=== PATIENT | male | born 1970 | race Caucasian/White ===

== ENCOUNTER → 2018-02-21 | Emergency (ER) | payer OTHER ==
[~2018-02-21] MED LIST: ENOXAPARIN SODIUM SQ ONE; LIPITOR 40MG ONE; LIPITOR 40MG PO STA; NITRO-BID 2% UD PACKETS ONE; NITRO-BID 2% UD PACKETS TOP ONE; Nitrostat 0.4 MG (ED) SL ONE; PLAVIX 75 MG Tablet ONE; PLAVIX 75 MG Tablet PO ONE; Sodium Chloride 0.9% 1000 ML 1,000 ML IV SCH
--- NOTE | 2018-02-21 00:59 | ERPHSYRPT ---
- History of Present Illness Time Seen by Provider: 02/21/18 00:51 Historian: patient Exam Limitations: clinical condition Physician History: PATIENT WITH A HISTORY OF HYPERTENSION COMPLAINS OF LEFT SUBSTERNAL CHEST PAINS WITH ONSET AT 11PM TONIGHT RADIATES TO LEFT SIDE OF NECK. WORKS AT [email or web address], ONSET OF PAIN WHILE AMBULATORY, PAIN SCALE 10/10, TOOK 2 ADULT ASPIRIN, HAS ASSOCIATED DIAPHORESIS AND DYSPNEA. PAIN IMPROVE TO PAIN SCALE 5/10. Timing/Duration: today Activities at Onset: activity Quality: pressure Location: substernal Chest Pain Radiation: jaw Severity of Pain-Max: severe Severity of Pain-Current: moderate Modifying Factors: Improves With: exertion Associated Symptoms: diaphoresis, other (DYSPNEA) Prior Chest Pain/Cardiac Workup: no prior chest pain Nitro Today/Relief: 0.4 mg x 2, provided by ED Aspirin Treatment Today: provided at home (ASPIRIN 650MG ORALLY) Allergies/Adverse Reactions: Penicillins Allergy (Intermediate, Verified 02/21/18 00:58) morphine Adverse Reaction (Intermediate, Verified 02/21/18 00:58) Vomiting Home Medications: Losartan Potassium 25 mg PO DAILY 02/21/18 [History] - Review of Systems Constitutional: No Fever, No Chills Eyes: No Symptoms Ears, Nose, & Throat: No Symptoms Respiratory: No Cough, No Dyspnea Cardiac: Chest Pain, Other (DIAPHORESIS), No Edema, No Syncope Abdominal/Gastrointestinal: No Abdominal Pain, No Nausea, No Vomiting, No Diarrhea Genitourinary Symptoms: No Symptoms, No Dysuria Musculoskeletal: No Symptoms, No Back Pain, No Neck Pain Skin: No Symptoms, No Rash Neurological: No Dizziness, No Focal Weakness, No Sensory Changes Psychological: No Symptoms Endocrine: No Symptoms All Other Systems: Reviewed and Negative - Nursing Vital Signs Nursing Vital Signs: Initial Vital Signs Temperature 97.8 F 02/21/18 00:46 Pulse Rate 89 02/21/18 00:46 Respiratory Rate 18 02/21/18 00:46 Blood Pressure 168/121 02/21/18 00:46 O2 Sat by Pulse Oximetry 97 02/21/18 00:46 Pain Scale Pain Intensity 1 - Physical Exam General Appearance: mild distress Eye Exam: PERRL/EOMI, eyes nml inspection Ears, Nose, Throat Exam: normal ENT inspection, moist mucous membranes Neck Exam: normal inspection, non-tender, supple, full range of motion Respiratory Exam: normal breath sounds, lungs clear, No respiratory distress Cardiovascular Exam: regular rate/rhythm, normal heart sounds Gastrointestinal/Abdomen Exam: soft, normal bowel sounds, No tenderness, No mass Back Exam: normal inspection, No CVA tenderness, No vertebral tenderness Extremity Exam: normal inspection, normal range of motion Neurologic Exam: alert, oriented x 3, cooperative, normal mood/affect, sensation nml, No motor deficits Skin Exam: normal color, warm, dry Lymphatic Exam: adenopathy SpO2 Interpretation: normal SpO2: 97 - Course EKG Interpreted by Me: RATE, Sinus Rhythm, NORMAL AXIS, Non-specific ST Changes (DIFFUSE INFERIOR LATERAL DEPRESSION RATE 87) - Radiology Exams Chest X-ray Interpretation: Interpreted by me, Negative, No Infiltrates Ordered Tests: Active Orders 24 hr Category Date Time Status Talent Program Manager STAT Care 02/21/18 00:53 Active EKG-ER Only STAT Care 02/21/18 00:52 Active Oxygen-ED Only NASAL CANNULA 2 lpm Care 02/21/18 00:52 Active CHEST 1 VIEW (PORTABLE) Stat Exams 02/21/18 00:53 Taken CBC W DIFF Stat Lab 02/21/18 01:08 Completed CMP Stat Lab 02/21/18 01:08 Completed D-DIMER QUANTITATION Stat Lab 02/21/18 01:08 Completed PROTIME WITH INR Stat Lab 02/21/18 01:08 Completed TROPONIN Q3H Lab 02/21/18 01:08 Completed TROPONIN Q3H Lab 02/21/18 04:00 Ordered TROPONIN Q3H Lab 02/21/18 07:00 Ordered TROPONIN Q3H Lab 02/21/18 10:00 Ordered TROPONIN Q3H Lab 02/21/18 13:00 Ordered Medication Summary Generic Name Dose Route Start Last Admin Trade Name Freq PRN Reason Stop Dose Admin Sodium Chloride 1,000 mls @ 100 mls/hr 02/21/18 01:00 02/21/18 01:04 Sodium Chloride 0.9% 1000 Ml IV 03/23/18 00:59 100 mls/hr .Q10H TERENCE Administration Discontinued Medications Generic Name Dose Route Start Last Admin Trade Name Freq PRN Reason Stop Dose Admin Atorvastatin Calcium 80 mg 02/21/18 02:05 02/21/18 02:11 Lipitor 40mg PO 02/21/18 02:06 80 mg STAT STA Administration Atorvastatin Calcium Confirm 02/21/18 02:08 Lipitor 40mg Administered 02/21/18 02:09 Dose 80 mg .ROUTE .STK-MED ONE Clopidogrel Bisulfate 150 mg 02/21/18 02:05 02/21/18 02:15 Plavix 75 Mg Tablet PO 02/21/18 02:06 150 mg STAT ONE Administration Clopidogrel Bisulfate Confirm 02/21/18 02:16 Plavix 75 Mg Tablet Administered 02/21/18 02:17 Dose 150 mg .ROUTE .STK-MED ONE Enoxaparin Sodium 110 mg 02/21/18 02:05 02/21/18 02:11 Enoxaparin Sodium 1 mg/kg (110 mg) 02/21/18 02:06 110 mg SQ Administration STAT ONE Enoxaparin Sodium Confirm 02/21/18 02:07 Enoxaparin Sodium Administered 02/21/18 02:08 Dose 120 mg SQ .STK-MED ONE Nitroglycerin 0.4 mg 02/21/18 00:52 02/21/18 01:04 Nitrostat 0.4 Mg (Ed) SL 02/21/18 00:53 0.4 mg STAT ONE Administration Nitroglycerin Confirm 02/21/18 01:02 Nitrostat 0.4 Mg (Ed) Administered 02/21/18 01:03 Dose 0.4 mg SL .STK-MED ONE Nitroglycerin Confirm 02/21/18 02:09 Nitro-Bid 2% Ud Packets Administered 02/21/18 02:10 Dose 1 gm .ROUTE .STK-MED ONE Nitroglycerin 1 gm 02/21/18 02:13 02/21/18 02:15 Nitro-Bid 2% Ud Packets TOP 02/21/18 02:14 1 gm STAT ONE Administration Lab/Rad Data: Laboratory Result Diagrams 02/21/18 01:08 02/21/18 01:08 Laboratory Results 02/21/18 02/21/18 02/21/18 Range/Units 01:08 01:08 01:08 WBC (4.0-10.5) K/mm3 RBC (4.1-5.6) M/mm3 Hgb (12.5-18.0) gm/dl Hct (42-50) % MCV (78-100) fl MCH (26-32) pg MCHC (32-36) g/dl RDW (11.5-14.0) % Plt Count (150-450) K/mm3 MPV (6-9.5) fl Gran % (36.0-66.0) % Eos # (Auto) (0-0.5) Absolute Lymphs (auto) (1.0-4.6) Absolute Monos (auto) (0.0-1.3) Lymphocytes % (24.0-44.0) % Monocytes % (0.0-12.0) % Eosinophils % (0.00-5.0) % Basophils % (0.0-0.4) % Absolute Granulocytes (1.4-6.9) Basophils # (0-0.4) PT 11.4 (8.83-12.87) SECONDS INR 0.98 (0.8-3.0) D-Dimer 412.44 (215-500) ng/mL Sodium 142 (137-145) mmol/L Potassium 3.7 (3.5-5.1) mmol/L Chloride 103 (98-107) mmol/L Carbon Dioxide 27 (22-30) mmol/L Anion Gap 14.7 (5-15) MEQ/L BUN 19 (9-20) mg/dL Creatinine 1.25 (0.66-1.25) mg/dL Estimated GFR > 60.0 ML/MIN Glucose 116 H (74-106) mg/dL Calcium 9.2 (8.4-10.2) mg/dL Total Bilirubin 0.40 (0.2-1.3) mg/dL AST 26 (17-59) U/L ALT 30 (0-50) U/L Alkaline Phosphatase 85 (38-126) U/L Troponin I 0.040 H* (0.000-0.034) ng/mL Serum Total Protein 7.5 (6.3-8.2) g/dL Albumin 4.3 (3.5-5.0) g/dL 02/21/18 Range/Units 01:08 WBC 8.8 (4.0-10.5) K/mm3 RBC 5.31 (4.1-5.6) M/mm3 Hgb 17.0 (12.5-18.0) gm/dl Hct 49.6 (42-50) % MCV 93.4 (78-100) fl MCH 32.0 (26-32) pg MCHC 34.3 (32-36) g/dl RDW 12.9 (11.5-14.0) % Plt Count 315 (150-450) K/mm3 MPV 10.6 H (6-9.5) fl Gran % 52.8 (36.0-66.0) % Eos # (Auto) 0.32 (0-0.5) Absolute Lymphs (auto) 2.46 (1.0-4.6) Absolute Monos (auto) 1.27 (0.0-1.3) Lymphocytes % 28.1 (24.0-44.0) % Monocytes % 14.5 H (0.0-12.0) % Eosinophils % 3.7 (0.00-5.0) % Basophils % 0.9 (0.0-0.4) % Absolute Granulocytes 4.62 (1.4-6.9) Basophils # 0.08 (0-0.4) PT (8.83-12.87) SECONDS INR (0.8-3.0) D-Dimer (215-500) ng/mL Sodium (137-145) mmol/L Potassium (3.5-5.1) mmol/L Chloride (98-107) mmol/L Carbon Dioxide (22-30) mmol/L Anion Gap (5-15) MEQ/L BUN (9-20) mg/dL Creatinine (0.66-1.25) mg/dL Estimated GFR ML/MIN Glucose (74-106) mg/dL Calcium (8.4-10.2) mg/dL Total Bilirubin (0.2-1.3) mg/dL AST (17-59) U/L ALT (0-50) U/L Alkaline Phosphatase (38-126) U/L Troponin I (0.000-0.034) ng/mL Serum Total Protein (6.3-8.2) g/dL Albumin (3.5-5.0) g/dL - Progress Progress: improved Progress Note: 02/21/18 01:01 IV NORMAL SALINE 100ML/HR, NITRO 0.4MG SL, COMPLETE RELIEF, APPLICATION NITROPASTE 1' ANTERIOR CHEST WALL, LIPITOR 80MG, PLAVIX 150MG ORALLY AND LOVENOX 100MG SUBQ, TROPONIN 0.04 02/21/18 02:19 Discussed with : Other (DISCUSSED WITH [facility] STONE AT 0215 ACCEPTS VIA [facility]) - Departure Time of Disposition: 02:30 Departure Disposition: Transfer Clinical Impression: Non Q wave myocardial infarction Condition: Stable Critical Care Time: No Referrals: DOCTOR,NO FAMILY [Primary Care Provider] -
[2018-02-21 01:14] LABS: BASOPHIL % 0.9 % (0.0-0.4); Basophil (Absolute #) 0.08 (0-0.4); Eosinophil % 3.7 % (0.00-5.0); Eosinophil (Absolute #) 0.32 (0-0.5); Granulocyte Absolute (ANC) 4.62 (1.4-6.9); Granulocytes % 52.8 % (36.0-66.0); Hematocrit 49.6 % (42-50); Lymphocyte (Absolute #) 2.46 (1.0-4.6); Lymphocytes % 28.1 % (24.0-44.0); Mean Cell Volume 93.4 fl (78-100); Mean Corpuscular Hgb Concent. 34.3 g/dl (32-36); Mean Platelet Volume 10.6 fl (6-9.5); Monocyte (Absolute #) 1.27 (0.0-1.3); Monocytes % 14.5 % (0.0-12.0); Platelet Count 315 K/mm3 (150-450); Red Blood Count 5.31 M/mm3 (4.1-5.6); Red Cell Distribution Width 12.9 % (11.5-14.0); White Blood Count 8.8 K/mm3 (4.0-10.5)
[2018-02-21 01:29] LABS: INR 0.98 (0.8-3.0)
[2018-02-21 01:31] LABS: D-DIMER QUANTITATION 412.44 ng/mL (215-500)
[2018-02-21 01:34] LABS: ALBUMIN 4.3 g/dL (3.5-5.0); ALKALINE PHOSPHATASE 85 U/L (38-126); ANION GAP 14.7 MEQ/L (5-15); BLOOD UREA NITROGEN 19 mg/dL (9-20); CHLORIDE 103 mmol/L (98-107); Calcium 9.2 mg/dL (8.4-10.2); Carbon Dioxide 27 mmol/L (22-30); Creatinine 1 1.25 mg/dL (0.66-1.25); Glucose 116 mg/dL (74-106); Potassium 3.7 mmol/L (3.5-5.1); SGOT/AST 26 U/L (17-59); SGPT/ALT 30 U/L (0-50); SODIUM 142 mmol/L (137-145); Total Protein 7.5 g/dL (6.3-8.2)
[2018-02-21 01:38] VITALS: O2SAT 97
[2018-02-21 01:54] VITALS: BP 113/72; PULSE 79
--- NOTE | 2018-02-21 08:16 | XRAY ---
Indication: Chest pain. Comparison: May 10, 2014. Portable chest again demonstrates normal heart and lungs. Bony thorax intact again with minimal degenerative changes. No new/acute findings.
== END | disposition short-term general hospital (02) ==
LOC: ED 00:31
DX: I21.4 Non-ST elevation (NSTEMI) myocardial infarction (principal); R61 Generalized hyperhidrosis; R06.00 Dyspnea, unspecified
CPT/HCPCS: 36415; 71045; 80053; 84484; 85025; 85379; 85610; 93005; 93041; 96360; 96361; 99285; J1650; A9270-GY